=== PATIENT | male | born 1985 | race Caucasian/White ===

== ENCOUNTER 2017-12-01 09:08 | Emergency (ER) | payer MEDICAID, OTHER ==
[~2017-12-01] VITALS: Ht 180.3 cm; Wt 71.0 kg
[~2017-12-01 09:08] MED LIST: HYDR-4383 PO; KETO10TA2 PO
[2017-12-01 09:16] VITALS: BP 130/85
[2017-12-01] MEDS ORDERED: HYDR-4353 PO (11:24)
[2017-12-01] MEDS ORDERED: CEPH500C5 PO (11:24)
== END 2017-12-01 11:35 | disposition home or self-care (01) ==
LOC: ER 09:09
DX: M25.462 Effusion, left knee (principal); Z79.2 Long term (current) use of antibiotics; Z79.899 Other long term (current) drug therapy
CPT/HCPCS: 73564; 99284

== ENCOUNTER 2020-08-05 12:36 | Emergency (ER) | payer SELFPAY ==
[~2020-08-05] VITALS: Ht 180.3 cm; Wt 81.0 kg
--- NOTE | 2020-08-05 13:33 | NUR ---
[employer] AT BEDSIDE.
[2020-08-05 15:08] VITALS: BP 140/85
== END 2020-08-05 15:10 | disposition home or self-care (01) ==
LOC: ER 12:36
DX: S80.02XD Contusion of left knee, subsequent encounter (principal); M25.562 Pain in left knee; M79.18 Myalgia, other site; Z98.890 Other specified postprocedural states; Z79.899 Other long term (current) drug therapy; V99.XXXD Unspecified transport accident, subsequent encounter
CPT/HCPCS: 73552; 73590; 73630; 99284